=== PATIENT | female | born 1965 | race Hispanic/Latino ===

== ENCOUNTER 2017-09-15 08:15 | Outpatient (CLI) | payer SELFPAY ==
--- NOTE | 2017-09-17 11:51 | MMO ---
BILATERAL DIGITAL SCREENING MAMMOGRAMS: HISTORY: A 52-year-old female presents for digital screening mammography. COMPARISON: 07/24/2016 and 04/22/2014 FINDINGS: This patient's mammogram was interpreted with the assistance of computer aided detection. The breasts are heterogeneously dense, which can obscure small masses. There are few typically benig n calcifications bilaterally, stable. No direct or indirect evidence of malignancy. IMPRESSION: BI-RADS Category 2: Benign findings. Continue routine screening. POS: [facility]
== END 2017-09-15 08:16 | disposition home or self-care (01) ==
LOC: SCSMAMMO 08:15
PROVIDERS: ATTEND Nurse Practitioner Family
DX: Z12.31 Encounter for screening mammogram for malignant neoplasm of breast (principal)
CPT/HCPCS: 77067

== ENCOUNTER 2018-01-07 09:19 | Outpatient (CLI) | payer OTHER ==
--- NOTE | 2018-01-07 10:21 | RAD ---
CHEST TWO VIEWS: HISTORY: Chest wall pain. COMPARISON: None. FINDINGS: Normal cardiac silhouette. The pulmonary vessels and pulmonary hilum are normal. The costophrenic a ngles are clear. No mass. No consolidation. No pneumothorax or osseous abnormalities. IMPRESSION: No acute cardiopulmonary process. POS: [facility]
== END 2018-01-07 09:20 | disposition home or self-care (01) ==
LOC: RAD-FRANK 09:19
PROVIDERS: ATTEND Nurse Practitioner Family
DX: R07.89 Other chest pain (principal)
CPT/HCPCS: 71046